=== PATIENT | male | born 1975 | race African-American/Black ===

== ENCOUNTER 2021-03-17 09:00 | Emergency (ER) | payer OTHER ==
[~2021-03-17] VITALS: Ht 175.3 cm; Wt 85.7 kg
[2021-03-17 09:40] LABS: ABSOLUTE NEUTROPHILS 2.3 thou/uL (1.4-8.2); BASOPHILS 2.2 % (0.0-2.0); EOSINOPHILS 2.4 % (0.0-3.0); HEMATOCRIT 38.3 % (42.0-52.0); HEMOGLOBIN 12.6 gm/dL (14.0-18.0); LYMPHOCYTES 38.2 % (24.0-44.0); MCH 26.9 pg (26.0-34.0); MCHC 32.8 g/dL (28.0-37.0); MONOCYTES 10.1 % (1.0-8.0); PLATELET COUNT 258 thou/uL (150-400); POLYS 47.1 % (36.0-66.0); RBC 4.67 mil/uL (4.50-6.00); RDW 13.5 % (10.5-14.5); WBC 4.9 thou/uL (4.0-11.0)
[2021-03-17 09:45] LABS: CALCIUM 8.7 mg/dL (8.5-10.1); CREATININE 0.9 mg/dL (0.7-1.3); POTASSIUM 3.9 mmol/L (3.5-5.1)
[2021-03-17 09:59] LABS: ALBUMIN 3.1 g/dL (3.4-5.0); TOTAL BILIRUBIN 0.7 mg/dL (0.2-1.0); TOTAL PROTEIN 6.9 g/dL (6.4-8.2)
[2021-03-17] MEDS ORDERED: MECLIZINE HCL25 MG PO (10:31)
[2021-03-17] MEDS ORDERED: METFORMIN HCL500 MG PO (10:31)
[2021-03-17 10:34] VITALS: BP 136/89
== END 2021-03-17 10:34 | disposition home or self-care (01) ==
LOC: ER 09:00
PROVIDERS: Emergency Medicine
DX: R42 Dizziness and giddiness (principal); E11.65 Type 2 diabetes mellitus with hyperglycemia

== ENCOUNTER 2021-06-07 12:01 | Emergency (ER) | payer OTHER ==
[~2021-06-07] VITALS: Ht 172.7 cm; Wt 81.7 kg
[~2021-06-07 12:01] MED LIST: MECLIZINE HCL25 MG PO; METFORMIN HCL500 MG PO
[2021-06-07 13:10] LABS: ABSOLUTE NEUTROPHILS 4.5 thou/uL (1.4-8.2); BASOPHILS 0.5 % (0.0-2.0); HEMATOCRIT 40.6 % (42.0-52.0); HEMOGLOBIN 13.1 gm/dL (14.0-18.0); LYMPHOCYTES 11.4 % (24.0-44.0); MCH 26.7 pg (26.0-34.0); MCHC 32.3 g/dL (28.0-37.0); MCV 82.7 fL (80.0-100.0); PLATELET COUNT 255 thou/uL (150-400); POLYS 82.1 % (36.0-66.0); RBC 4.91 mil/uL (4.50-6.00); RDW 12.9 % (10.5-14.5); WBC 5.5 thou/uL (4.0-11.0)
[2021-06-07 13:36] LABS: CALCIUM 8.4 mg/dL (8.5-10.1); CREATININE 1.1 mg/dL (0.7-1.3); POTASSIUM 4.1 mmol/L (3.5-5.1)
--- NOTE | 2021-06-07 15:15 | EKG ---
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
--- NOTE | 2021-06-07 15:15 | EKG ---
[place] [address] [employer] [facility] [place] [address] ELECTROCARDIOGRAM REPORT Name: GERALD PEREZ Room #: REG JESSENIA Sharp#: [id number] Admission: 06/07/21 Attend Phys: Discharge: Date of : 75 Report #: [id number] 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 : 1975 Requested By: Sterling Medrano Order Number: [id number] MD: Jimmy Bacon Measurements Intervals [place] Rate: 72 P: 77 CT: 134 QRS: 89 QRSD: 91 T: 45 QT: 375 QTc: 411 Interpretive Statements Sinus rhythm Low voltage, precordial leads Compared to ECG 06/07/2021 12:04:58 Low QRS voltage now present ST (T wave) deviation no longer present Electronically Signed On 06-07-2021 15:15:04 CDT by Jimmy Bacon [email or web address] <ELECTRONICALLY SIGNED> By: Jimmy Bacon MD, [facility] 06/07/21 1515 1226 25 Jimmy Bacon MD, FACC /EPI
[2021-06-07 15:22] VITALS: BP 138/88
== END 2021-06-07 15:23 | disposition home or self-care (01) ==
LOC: ER 12:01
PROVIDERS: Nurse Practitioner
DX: R07.89 Other chest pain (principal); E11.9 Type 2 diabetes mellitus without complications; Z98.890 Other specified postprocedural states; Z79.84 Long term (current) use of oral hypoglycemic drugs